=== PATIENT | female | born 1950 | race Hispanic/Latino ===

== ENCOUNTER → 2017-06-14 | Outpatient (CLI) | payer OTHER ==
[~2017-06-14] VITALS: Ht 162.6 cm; Wt 81.7 kg
[~2017-06-14] MED LIST: AMBIEN10 MG PO; AMLOD-VALSA-HC1 EAC1 PO; CELEBREX200 MG PO; CELLCEPT500 MG PO; DAILY VALUE1 EACH PO; EFFEXOR XR150 MG PO; ELAVIL25 MG PO; ERGOCALCIF50000 UNIT PO; FISH OIL 1,0001 EAC7 PO; LO-DOSE ASPIRIN81 M2 PO; NEXIUM40 MG PO; PLAVIX75 MG PO; PROBIOTIC1 EAC1 PO; VITAMIN B122500 MCG PO; ZETIA10 MG PO
== END | disposition home or self-care (01) ==
LOC: AMB 11:30
PROC: B246ZZ4 Ultrasonography of Right and Left Heart, Transesophageal (ICD-10-PCS; principal; 2017-06-14)
DX: Q21.1 Atrial septal defect (principal); Z86.73 Personal history of transient ischemic attack (TIA), and cerebral infarction without residual deficits; I10 Essential (primary) hypertension; E78.2 Mixed hyperlipidemia; Z79.02 Long term (current) use of antithrombotics/antiplatelets; Z79.82 Long term (current) use of aspirin; E66.3 Overweight; Z68.31 Body mass index [BMI] 31.0-31.9, adult
CPT/HCPCS: 93312